=== PATIENT | male | born 1965 | race African-American/Black ===

== ENCOUNTER 2018-02-11 22:09 | Emergency (ER) | payer MEDICARE, OTHER ==
[~2018-02-11] VITALS: Ht 167.6 cm; Wt 65.0 kg
[~2018-02-11 22:09] MED LIST: ACET500T3 PO
[2018-02-11] MEDS ORDERED: IOHEXOL 350 MG/ML 10 ML VIAL (for RAD DIAG) IVCONTRAST ONE (22:10)
[2018-02-11 22:18] VITALS: BP 165/76; PULSE 66; RESP 18; TEMP 97.2; O2SAT 100
[2018-02-11] MEDS ORDERED: SODIUM CHLOR 0.9% 1000 ML INJ 1,000 ML IV SCH (22:55)
[2018-02-11] MEDS ORDERED: ONDANSETRON HCL 4 MG/2 ML VIAL IVP ONE (23:00)
[2018-02-11] MEDS ORDERED: SODIUM CHLORIDE 0.9% FLUSH 10 ML FLUSH IV FLUSH PRN (23:00)
[2018-02-11] MEDS ORDERED: MORPHINE SULFATE 4 MG/ML INJ IV PUSH ONE (23:00)
[2018-02-11 23:26] LABS: AUTOMATED NEUTROPHIL # 4.3 TH/MM3 (1.8-7.7); BASOPHIL # 0.1 TH/MM3 (0-0.2); BASOPHIL % 0.8 % (0.0-2.0); EOSINOPHIL # 0.2 TH/MM3 (0-0.4); EOSINOPHIL % 2.4 % (0.0-4.0); HEMATOCRIT 42.5 % (39.0-51.0); HEMOGLOBIN 14.6 GM/DL (13.0-17.0); LYMPH % 19.7 % (9.0-44.0); LYMPHOCYTE # 1.3 TH/MM3 (1.0-4.8); MEAN CELL VOLUME 86.1 FL (80.0-100.0); MEAN CORPUSCULAR HEMOGLOBIN 29.5 PG (27.0-34.0); MEAN CORPUSCULAR HGB CONC 34.2 % (32.0-36.0); MEAN PLATELET VOLUME 7.9 FL (7.0-11.0); MONO % 11.7 % (0.0-8.0); MONOCYTE # 0.8 TH/MM3 (0-0.9); NEUT % 65.4 % (16.0-70.0); PLATELET COUNT 275 TH/MM3 (150-450); RED BLOOD COUNT 4.94 MIL/MM3 (4.50-5.90); RED CELL DISTRIBUTION WIDTH 13.2 % (11.6-17.2); WHITE BLOOD COUNT 6.6 TH/MM3 (4.0-11.0)
[2018-02-11 23:30] VITALS: BP 140/74; PULSE 90; RESP 16; O2SAT 100
[2018-02-11 23:31] LABS: ALBUMIN 3.7 GM/DL (3.4-5.0); AST (GOT) 14 U/L (15-37); BICARBONATE 26.3 MEQ/L (21.0-32.0); BLOOD UREA NITROGEN 22 MG/DL (7-18); CALCIUM 8.4 MG/DL (8.5-10.1); CHLORIDE 105 MEQ/L (98-107); CREATININE 0.64 MG/DL (0.60-1.30); GLOMERULAR FILTRATION RATE 160 ML/MIN (>89); GLUCOSE,RANDOM 89 MG/DL (74-106); SODIUM (NA) 138 MEQ/L (136-145)
[2018-02-11 23:32] LABS: ALT (GPT) 18 U/L (12-78)
[2018-02-11 23:34] LABS: ALKALINE PHOSPHATASE 55 U/L (45-117); TOTAL BILIRUBIN ADULT 0.9 MG/DL (0.2-1.0); TOTAL PROTEIN 7.1 GM/DL (6.4-8.2)
[2018-02-11 23:46] LABS: INTERNATIONAL NORMALIZED RATIO 1.1 RATIO; PROTHROMBIN TIME - PATIENT 11.3 SEC (9.8-11.6)
--- NOTE | 2018-02-12 01:04 | RADRPT ---
EXAM DATE/TIME: 02/12/2018 00:39 [place] COMPARISON: No previous studies available for comparison. INDICATIONS : Right abdomen and groin pain. IV CONTRAST: 90 cc Omnipaque 350 (iohexol) IV ORAL CONTRAST: No oral contrast ingested. RADIATION DOSE: 4.82 CTDIvol (mGy) MEDICAL HISTORY : Hernia, inguinal. SURGICAL HISTORY : Inguinal hernia repair. ENCOUNTER: Initial ACUITY: 3 days PAIN SCALE: 7/10 LOCATION: Right abdomen and groin TECHNIQUE: Volumetric scanning of the abdomen and pelvis was performed. Using automated exposure control and ad justment of the mA and/or kV according to patient size, radiation dose was kept as low as reasonably achievable to obtain optimal diagnostic quality images. DICOM format image data is available electro nically for review and comparison. FINDINGS: LOWER LUNGS: The visualized lower lungs are clear. LIVER: Homogeneous density without lesion. There is no dilation of the biliary tree. No calcified gallston es. SPLEEN: Normal size without lesion. PANCREAS: Within normal limits. KIDNEYS: Normal in size and shape. There is no mass, stone or hydronephrosis. The densities. ADRENAL GLANDS: Within normal limits. VASCULAR: There is no aortic aneurysm. BOWEL/MESENTERY: The stomach, small bowel, and colon demonstrate no acute abnormality. There is no free intraperitone al air or fluid. Appendix not seen. Copious amount of stool seen. ABDOMINAL WALL: Within normal limits. RETROPERITONEUM: There is no lymphadenopathy. BLADDER: No wall thickening or mass. REPRODUCTIVE: Within normal limits. INGUINAL: There are small fat containing inguinal hernias. MUSCULOSKELETAL: Within normal limits for patient age. CONCLUSION: 1. No acute inflammatory change. 2. Constipation. 3. Fat containing inguinal hernias. 4. Bilateral renal low densities likely cysts. Jalen Jenkins MD on February 12, 2018 at 0:59 Board Certified Radiologist. This report was verified electronically.
[2018-02-12] MEDS ORDERED: TRAM50TA PO (01:56)
--- NOTE | 2018-02-12 01:56 | PD ---
HPI Chief Complaint: Abdominal Pain Time Seen by Provider: 22:37 Travel History International Travel<30 days: No Contact w/Intl Traveler<30days: No Traveled to known affect area: No History of Present Illness HPI Patient is a 52 year old male who comes in complaining of pain to his groin area. He says he has had pain there for the past year at least, but it has gotten worse. He denies nausea or vomiting. He says he is having normal bowel movements. He has tried ibuprofen for pain without much relief. He denies fever or chills or difficulty urinating. Severity is mild to moderate. [facility] Past Medical History Medical History: Denies Significant Hx Arthritis: No Heart Rhythm Problems: No Cardiovascular Problems: No High Cholesterol: No Chest Pain: No Congestive Heart Failure: No Cerebrovascular Accident: No Diminished Hearing: No Headaches: No Hypertension: No Musculoskeletal: No Neurologic: No Respiratory: No Immunizations Current: Yes Migraines: No Myocardial Infarction: No Seizures: No Past Surgical History Abdominal Surgery: Yes (HERNIA REPAIR) Cardiac Surgery: No Ear Surgery: No Endocrine Surgery: No Eye Surgery: No Genitourinary Surgery: No Gynecologic Surgery: No Oral Surgery: No Thoracic Surgery: No Other Surgery: Yes (HEMORRHOIDECTOMY) Social History Alcohol Use: Yes Tobacco Use: No Substance Use: No Allergies-Medications (Allergen,Severity, Reaction): Coded Allergies: No Known Allergies (Verified Allergy, Unknown, 02/12/18) Reported Meds & Prescriptions Reported Meds & Active Scripts Active No Active Prescriptions or Reported Medications Review of Systems Except as stated in HPI: all other systems reviewed are Neg General / Constitutional: No: Fever, Chills HENT: No: Headaches, Lightheadedness Cardiovascular: No: Chest Pain or Discomfort Respiratory: No: Shortness of Breath Gastrointestinal: No: Nausea, Vomiting Musculoskeletal: No: Myalgias, Edema Skin: No Rash, No Change in Pigmentation Neurologic: No: Weakness, Dizziness Physical Exam Narrative GENERAL: Awake and alert, in no acute distress. SKIN: Focused skin assessment warm/dry. HEAD: Atraumatic. Normocephalic. EYES: Pupils equal and round. No scleral icterus. EOMI. ENT: No nasal bleeding or discharge. Mucous membranes pink and moist. NECK: Trachea midline. No JVD. CARDIOVASCULAR: Regular rate and rhythm. No murmur appreciated. RESPIRATORY: No accessory muscle use. Clear to auscultation. Breath sounds equal bilaterally. GASTROINTESTINAL: Abdomen soft, non-tender, nondistended. Right sided inguinal hernia, reducible. MUSCULOSKELETAL: No obvious deformities. No clubbing. No cyanosis. No edema. NEUROLOGICAL: Awake and alert. No obvious cranial nerve deficits. Motor grossly within normal limits. Normal speech. PSYCHIATRIC: Appropriate mood and affect; insight and judgment normal. Data Data Last Documented VS Vital Signs Date Time Temp Pulse Resp B/P (MAP) Pulse Ox O2 Delivery O2 Flow Rate FiO2 02/11/18 23:30 90 16 140/74 (96) 100 Room Air 02/11/18 22:18 97.2 Orders Orders Complete Blood Count With Diff (02/11/18 22:55) Comprehensive Metabolic Panel (02/11/18 22:55) Lactic Acid (02/11/18 22:55) Prothrombin Time / Inr (Pt) (02/11/18 22:55) Act Partial Throm Time (Ptt) (02/11/18 22:55) Ct Abd/Pel W Iv Contrast(Rout) (02/11/18 22:55) Iv Access Insert/Monitor (02/11/18 22:55) Ecg Monitoring (02/11/18 22:55) Oximetry (02/11/18 22:55) Morphine Inj (Morphine Inj) (02/11/18 23:00) Ondansetron Inj (Zofran Inj) (02/11/18 23:00) Sodium Chlor 0.9% 1000 Ml Inj (Ns 1000 M (02/11/18 22:55) Sodium Chloride 0.9% Flush (Ns Flush) (02/11/18 23:00) Iohexol 350 Inj (Omnipaque 350 Inj) (02/11/18 22:10) Labs Laboratory Tests Test 02/11/18 23:00 White Blood Count 6.6 TH/MM3 Red Blood Count 4.94 MIL/MM3 Hemoglobin 14.6 GM/DL Hematocrit 42.5 % Mean Corpuscular Volume 86.1 FL Mean Corpuscular Hemoglobin 29.5 PG Mean Corpuscular Hemoglobin Concent 34.2 % Red Cell Distribution Width 13.2 % Platelet Count 275 TH/MM3 Mean Platelet Volume 7.9 FL Neutrophils (%) (Auto) 65.4 % Lymphocytes (%) (Auto) 19.7 % Monocytes (%) (Auto) 11.7 % Eosinophils (%) (Auto) 2.4 % Basophils (%) (Auto) 0.8 % Neutrophils # (Auto) 4.3 TH/MM3 Lymphocytes # (Auto) 1.3 TH/MM3 Monocytes # (Auto) 0.8 TH/MM3 Eosinophils # (Auto) 0.2 TH/MM3 Basophils # (Auto) 0.1 TH/MM3 CBC Comment DIFF FINAL Differential Comment Prothrombin Time 11.3 SEC Prothromb Time International Ratio 1.1 RATIO Activated Partial Thromboplast Time 29.3 SEC Blood Urea Nitrogen 22 MG/DL Creatinine 0.64 MG/DL Random Glucose 89 MG/DL Total Protein 7.1 GM/DL Albumin 3.7 GM/DL Calcium Level 8.4 MG/DL Alkaline Phosphatase 55 U/L Aspartate Amino Transf (AST/SGOT) 14 U/L Alanine Aminotransferase (ALT/SGPT) 18 U/L Total Bilirubin 0.9 MG/DL Sodium Level 138 MEQ/L Potassium Level 3.9 MEQ/L Chloride Level 105 MEQ/L Carbon Dioxide Level 26.3 MEQ/L Anion Gap 7 MEQ/L Estimat Glomerular Filtration Rate 160 ML/MIN Lactic Acid Level 1.0 mmol/L MDM Medical Decision Making Medical Screen Exam Complete: Yes Emergency Medical Condition: Yes Medical Record Reviewed: Yes Differential Diagnosis incarcerated hernia vs strangulated hernia vs obstruction Narrative Course Patient is a 52 year old male who comes in complaining of right groin pain. Exam shows a reducible right inguinal hernia. IV established, labs sent. Labs show no acute abnormalities. CT abdomen and pelvis shows fat containing inguinal hernias. Last 24 hours Impressions Abdomen/Pelvis CT 02/11/18 3698 Signed Impressions: Service Date/Time: Monday, February 12, 2018 00:39 - CONCLUSION: 1. No acute inflammatory change. 2. Constipation. 3. Fat containing inguinal hernias. 4. Bilateral renal low densities likely cysts. Jalen Jenkins MD Given pain medicine. Referral placed to general surgery. Advised to follow up with general surgery. Advised to return as needed for any worsening symptoms. Diagnosis Primary Impression: Inguinal hernia Qualified Codes: K40.20 - Bilateral inguinal hernia, without obstruction or gangrene, not specified as recurrent Referrals: Andrea Muhammad MD call for appointment Patient Instructions: General Instructions, Inguinal Hernia (ED) Additional Instructions: Follow up with a general surgeon for repair of your hernias. Wear scrotal support for comfort. Take pain medicine as needed. Return to the ED as needed for any worsening symptoms. Scripts Tramadol (Tramadol) 50 Mg Tab 50 MG PO Q6H Y for PAIN, #10 TAB 0 Refills Prov: Radha Marcelo MD 02/12/18 Disposition: 01 DISCHARGE HOME Condition: Stable Radha Marcelo MD Feb 12, 2018 01:56
== END 2018-02-12 02:13 | disposition home or self-care (01) ==
LOC: NEPC 22:09
DX: K40.20 Bilateral inguinal hernia, without obstruction or gangrene, not specified as recurrent (principal)
CPT/HCPCS: 74177; 80053; 83605; 85025; 85610; 85730; 96374; 96375; 99285; J2270; J2405; J7030; Q9967